=== PATIENT | male | born 2000 | race American Indian/Alaskan Native ===

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

== ENCOUNTER 2021-04-02 18:05 | Emergency (ER) | payer MEDICAID ==
[2021-04-02 20:30] VITALS: BP 108/61
--- NOTE | 2021-04-02 20:31 | Emergency Department Report ---
Abscess Boil HPI - HPI Chief Complaint: Skin/Abscess/Foreign Body Stated Complaint: BUMP ON PRIVATE AREA Time Seen by Provider: 04/02/21 20:28 Duration: >1 Week (2 weeks ago) Location: Other (shaft of penis) History: Yes Pain, No Fever, No Purulent Drainage, No Numbness, No Foreign Body, No Previous History, No Insect Bite HPI: 20-year-old male presents to the ER today with complaints of a bump to the shaft of his penis. Patient states that he noticed a small bump to his penis about 2 weeks ago. He states that he has been digging at it is time he is in the shower until recently started to become more painful and swollen. He denies any associated dysuria or penile discharge. He states that he is sexually active with the same person for the past year. He reports sometimes protected and sometimes unprotected sexual intercourse. He reports no other symptoms at this time. Home Medications: Previous Rx's Medication Instructions Recorded Last Taken Type Ibuprofen [Motrin 800 MG tab] 800 mg PO Q8HR PRN #21 tablet 04/02/21 Unknown Rx Sulfamethoxazole/Trimethoprim 1 each PO BID #14 tablet 04/02/21 Unknown Rx [Bactrim DS TAB] Allergies/Adverse Reactions: Allergies Allergy/AdvReac Type Severity Reaction Status Date / Time No Known Allergies Allergy Unverified 12/09/19 17:23 ED Review of Systems ROS: Stated complaint: BUMP ON PRIVATE AREA Other details as noted in HPI Comment: All other systems reviewed and negative Constitutional: denies: chills, diaphoresis, fever, malaise, weakness ENT: denies: ear pain, throat pain, dental pain, hearing loss, epistaxis, congestion Respiratory: denies: cough, orthopnea, shortness of breath, SOB with exertion, SOB at rest, wheezing Cardiovascular: denies: chest pain, palpitations, dyspnea on exertion, edema, syncope, paroxysmal nocturnal dyspnea Gastrointestinal: denies: abdominal pain, nausea, vomiting, diarrhea, constipation, hematemesis, hematochezia Genitourinary: denies: urgency, dysuria, frequency, hematuria, discharge, testicular pain, testicular mass Musculoskeletal: denies: back pain, joint swelling, arthralgia Skin: rash, lesions. denies: change in color, change in hair/nails, pruritus Neurological: denies: headache, weakness, paresthesias ED Past Medical Hx - Past Medical History Previous Medical History?: No - Surgical History Past Surgical History?: No - Social History Smoking Status: Never Smoker - Medications Home Medications: Home Medications Medication Instructions Recorded Confirmed Last Taken Type Ibuprofen [Motrin 800 MG tab] 800 mg PO Q8HR PRN #21 tablet 04/02/21 Unknown Rx Sulfamethoxazole/Trimethoprim 1 each PO BID #14 tablet 04/02/21 Unknown Rx [Bactrim DS TAB] ED Abscess Boil Physical Exam - Exam General: Vital signs noted. No distress. Alert and acting appropriately. Size: 1 cm Exam: Yes Tenderness, Yes Fluctuance, Yes Normal Neurologic Exam, Yes Normal Circulation, No Surrounding Cellulites/Erythema, No Lymphangitis, No Crepitation, No Heart Murmur Exam: Patient has a single small approximately 1 cm fluctuant pustular area to the shaft of his penis. No ulceration noted. No penile discharge. No associated cellulitis or significant swelling noted. ED Course Vital Signs 04/02/21 20:22 Temperature 97.9 F Pulse Rate 93 H Respiratory 16 Rate Blood Pressure 108/61 O2 Sat by Pulse 99 Oximetry Critical care attestation.: If time is entered above; I have spent that time in minutes in the direct care of this critically ill patient, excluding procedure time. ED Medical Decision Making - Medical Decision Making Patient with a small single pustular area measuring about 1 cm to the shaft of his penis. Pus was expressed from the area on exam. No additional incision needed. No significant cellulitis or swelling noted. No ulcerations or penile discharge or any other type of rash noted. Suspect this was a small abscess. No concern for STD at this time. Wound care discussed with patient. He will be started on oral antibiotics. Patient is well-appearing and nontoxic and not in any acute distress. His vital signs are stable. Patient expressed understanding of instructions and agree with plan. Patient stable at time of discharge. ED Disposition Clinical Impression: Abscess, penis Disposition: DC-01 TO HOME OR SELFCARE Is pt being admited?: No Does the pt Need Aspirin: No Condition: Stable Instructions: Skin Abscess Additional Instructions: Take the Bactrim as prescribed. Keep the area clean with soap and water, do not use peroxide or alcohol. You can apply a small amount of Neosporin after each cleaning. Try not to dig or manipulate area. Follow-up with primary care doctor as needed. Return to the ER if your symptoms changes or worsens in any way. Prescriptions: Sulfamethoxazole/Trimethoprim [Bactrim DS TAB] 1 each PO BID #14 tablet Ibuprofen [Motrin 800 MG tab] 800 mg PO Q8HR PRN #21 tablet PRN Reason: pain Referrals: VINNY LEE MD [Staff Physician] - 3-5 Days Time of Disposition: 20:49
== END 2021-04-02 20:55 | disposition home or self-care (01) ==
LOC: ED 18:05
DX: N48.21 Abscess of corpus cavernosum and penis (principal); Z79.899 Other long term (current) drug therapy
CPT/HCPCS: 99282

== ENCOUNTER 2021-08-08 18:07 | Emergency (ER) | payer MEDICAID | END 2021-08-08 18:40 | disposition left against medical advice (07) | LOC: ED 18:07 | DX: R22.43 Localized swelling, mass and lump, lower limb, bilateral (principal); Z53.21 Procedure and treatment not carried out due to patient leaving prior to being seen by health care provider ==

== ENCOUNTER 2022-03-20 14:58 | Emergency (ER) | payer MEDICAID ==
[2022-03-20 15:56] VITALS: BP 135/71
--- NOTE | 2022-03-20 16:40 | Event Note ---
"[employer] aware RX Summary Summary Total Prescriptions 1 Total Private Pay 0 Total Prescribers 1 Total Pharmacies 1 Opioids* (excluding Buprenorphine) Current Qty 0 Current MME/day 21.43 30 Day Avg MME/day 4.29 Buprenorphine* Current Qty 0 Current mg/day 0.00 30 Day Avg mg/day 0.00 State Indicators (0) Details Prescriptions Total: 1 | Private Pay: 0 Showing 1 Item View 15 Items 1 of 1 Filled Written ID Drug QTY Days Prescriber RX # Dispenser Refill Daily Dose* Pymt Type RELAY REPAIRER 03/14/2022 03/14/2022 1 Oxycodone Hcl (Ir) 5 Mg Tablet 20.00 7 Gr Pha 10934 Gra (6044) 0 21.43 MME Comm Ins [place] Disclaimer Showing 1 Item View 15 Items 1 of 1 Providers Total: 1 Showing 1 Item View 15 Items 1 of 1 Name Address [facility] Zipcode Phone [facility] [address] [address] [facility] [id number] - Showing 1 Item View 15 Items 1 of 1 Pharmacies Total: 1 Showing 1 Item View 15 Items 1 of 1 Name Address [facility] State Zipcode Phone [facility] [phone] [place] [facility] [id number] Showing 1 Item View 15 Items 1 of 1"
== END 2022-03-21 05:15 | disposition left against medical advice (07) ==
LOC: ED 14:58
DX: M79.602 Pain in left arm (principal); Z53.21 Procedure and treatment not carried out due to patient leaving prior to being seen by health care provider